=== PATIENT | female | born 1990 | race Caucasian/White ===

== ENCOUNTER 2018-12-21 23:52 | Inpatient (IN) ==
[2018-12-22] MEDS ORDERED: ONDANSETRON HCL/PF 2 MG/ML VIAL IV PRN ×3 (00:20→22:53)
[2018-12-22] MEDS ORDERED: DEXTROSE 5%-LACTATED RINGERS 1,000 ML IV PRN (00:20)
[2018-12-22] MEDS ORDERED: OXYTOCIN/DEXTROSE 5%-WATER 30 UNITS/500 ML BAG IV ONE (00:22)
[2018-12-22 01:26] LABS: Cocaine Ur Negative (NEGATIVE); Urine Barbiturate Negative (NEGATIVE); Urine Benzodiazepines Negative (NEGATIVE); Urine Opiates Negative (NEGATIVE); Urine PCP Negative (NEGATIVE); Urine THC Negative (NEGATIVE)
[2018-12-22] MEDS: RINGER'S SOLUTION,LACTATED 1,000 ML IV PRN ×2 (08:05→20:44)
[2018-12-22] MEDS ORDERED: NALOXONE HCL 1 MG/1 ML SYRG IV PRN (08:43)
[2018-12-22] MEDS ORDERED: BUPIVACAINE HCL/0.9 % NACL/PF 250 ML EP PRN (08:43)
[2018-12-22] MEDS ORDERED: BUPIVACAINE HCL/PF 30 ML VIAL EP SCH (08:45)
--- NOTE | 2018-12-22 08:46 | ANES ---
Anesthesia Pre Procedure Eval Vitals/Labs: Last Vital Signs Temp 37.2 C 12/22/18 01:45 Pulse 81 12/22/18 01:45 Resp 16 12/22/18 01:45 BP 126/77 12/22/18 01:45 Pulse Ox 98 12/22/18 01:45 HOME MEDICATIONS vitamin,calcium,kolbwvmu-epyt-aafcn acid tablet 1 tab PO DAILY 06/14/18 [Last Taken Unknown] magnesium 250 mg tablet 500 mg PO DAILY PRN tab 07/18/18 [Last Taken Unknown] Allergies/Adverse Reactions: Allergies Allergy/AdvReac Type Severity Reaction Status Date / Time amoxicillin AdvReac Severe Anaphylaxis Verified 12/22/18 00:30 - Planned Procedure Planned Procedure: Labor epidural Medication List Reviewed:: Yes Allergies Verified: Yes Medical History (Last Reviewed 12/22/18 @ 08:45 by Sudeep Silva CRNA) Acne Foot pain, left Migraine headache with aura History of wisdom tooth extraction Oligomenorrhea Onset Date: ~06/28/15 Other specified irregular menstruation Onset Date: ~10/08/15 Dysmenorrhea Onset Date: ~12/23/17 Menorrhagia with regular cycle Onset Date: ~12/23/17 Surgical History (Last Reviewed 12/22/18 @ 08:45 by Sudeep Silva CRNA) History of foot surgery Onset Date: ~01/02/15 Left Family History (Last Reviewed 12/22/18 @ 08:45 by Sudeep Silva CRNA) Aunt Cancer Ovarian CA Brother Diabetes Father Hypertension Mother Alive and well Grandfather Cancer - Anesthesia Assessment and Plan ASA Class: PS, II Anesthesia Type Plan: Epidural
--- NOTE | 2018-12-22 09:15 | ANES ---
Anesthesia Procedure Note Procedure Note: ANESTHESIA PROCEDURE NOTE Date of Procedure: 12/22/2018. Time of procedure: 854. Performed by: Sudeep Silva CRNA Boiler Operator: None. Preprocedure diagnosis: Active labor. Post procedure diagnosis: Same. Procedure: Insertion of labor epidural. Indications: The patient is a 28 -year-old female in active labor requesting labor epidural for pain management. Findings: See below. Details of the procedure: The patient was placed in a sitting position. DuraPrep as well as Betadine swabs X3 was applied to the patient's back. Patient was then draped in a sterile fashion. Lidocaine 1% was infiltrated to the skin and subcutaneous tissues at the level of the L3-4 interspace. The epidural space was identified using a 18-gauge Tuohy needle with yure-fs-fuaaqoazqw technique. CSF fluid was noted upin removal of stylette. the tuohy needle was withdrawn untill free flow of CSF stopped. Epidural catheter was inserted to a depth of 12 centimeters at skin. Negative test dose was elicited using 3 mL of 1.5% preservative-free lidocaine plus epinephrine 1 200,000. The epidural catheter was then taped and secured in place. A loading dose of 8 mL of 0.25% preservative-free bupivacaine was administered to the epidural catheter after negative aspiration for blood and CSF. EBL: Minimal. Fluids: N/A. Specimen: N/A. Post procedure condition: The patient tolerated the procedure well. No complications were noted. Thank you for this consultation. Sudeep Silva CRNA
--- NOTE | 2018-12-22 09:17 | ANES ---
Post Anesthesia Assessment - Vital Signs Vitals: Last Vital Signs Temp 36.8 C 12/22/18 09:16 Pulse 74 12/22/18 09:16 Resp 18 12/22/18 09:16 BP 144/82 H 12/22/18 09:16 Pulse Ox 97 12/22/18 09:16 Airway Patency: Normal - Mental Status Level Of Consciousness: Awake - N/V Assessment Nausea/Vomiting Presence: None Dehydration:: No
--- NOTE | 2018-12-22 13:08 | ANES ---
Anesthesia Procedure Note Procedure Note: ANESTHESIA PROCEDURE NOTE Date of Procedure: 12/22/2018. Time of procedure: 1255. Performed by: Sudeep Silva CRNA Physical Therapy Professor: None. Preprocedure diagnosis: Accidental removal of epidural. Post procedure diagnosis: Same. Procedure: Removal and Rensertion of labor epidural. Indications: The patient is a 28-year-old female in active whose epidural catheter has been partially removed. Findings: See below. Details of the procedure: The epidural catheter was found to be removed approximately 4 cm. The tape was removed and the epidural catheter was then removed intact. DuraPrep as well as Betadine swabs X3 was applied to the patient's back. Patient was then draped in a sterile fashion. Lidocaine 1% was infiltrated to the skin and subcutaneous tissues at the level of the L3-4 interspace. The epidural space was identified using a 18-gauge Tuohy needle with syat-uy-vseynbqsxs technique. Epidural catheter was inserted to a depth of 12 centimeters at skin. Negative test dose was elicited using 3 mL of 1.5% preservative-free lidocaine plus epinephrine 1 200,000. The epidural catheter was then taped and secured in place. EBL: Minimal. Fluids: N/A. Specimen: N/A. Post procedure condition: The patient tolerated the procedure well. No complications were noted. Thank you for this consultation. Sudeep Silva CRNA
--- NOTE | 2018-12-22 13:19 | HP ---
Chief Complaint - Chief Complaint Date of Service: 12/22/18 Time of Service: 13:12 Chief Complaint: elective induction of labor History of Present Illness: 28 yo at 39 5/7 wks presents for elective induction of labor. This has been uncomplicated. Rh positive Rubella nonimmune GBS negative Medical History (Last Reviewed 12/22/18 @ 13:15 by Isreal Kendrick DO) Acne Foot pain, left Migraine headache with aura History of wisdom tooth extraction Oligomenorrhea Onset Date: ~06/28/15 Other specified irregular menstruation Onset Date: ~10/08/15 Dysmenorrhea Onset Date: ~12/23/17 Menorrhagia with regular cycle Onset Date: ~12/23/17 Surgical History: Surgical History (Last Reviewed 12/22/18 @ 13:15 by Isreal Kendrick DO) History of foot surgery Onset Date: ~01/02/15 Left Family History: Family History (Last Reviewed 12/22/18 @ 13:15 by Isreal Kendrick DO) Aunt Cancer Ovarian CA Brother Diabetes Father Hypertension Mother Alive and well Grandfather Cancer Social History: Preferred Language Turkish Smoking Status Former smoker (Last Updated 12/20/18 @ 10:31 by Isreal Kendrick DO) No Social History Section defined Review Of Systems (GEN) - Review of Systems Generalized/Overall Review: Present: No Symptoms Reported EENTM: Present: No Symptoms Reported Respiratory: Present: No Symptoms Reported Cardiac: Present: No Symptoms Reported Abdominal: Present: No Symptoms Reported Genitourinary: Present: No Symptoms Reported Musculoskeletal: Present: No Symptoms Reported Neurological: Present: No Symptoms Reported Skin: Present: No Symptoms Reported Endocrine: Present: No Symptoms Reported Allergies/Adverse Reactions: Allergies Allergy/AdvReac Type Severity Reaction Status Date / Time amoxicillin AdvReac Severe Anaphylaxis Verified 12/22/18 00:30 Home Medications: HOME MEDICATIONS vitamin,calcium,sbhspdgb-denu-tiido acid tablet 1 tab PO DAILY 06/14/18 [Last Taken Unknown] magnesium 250 mg tablet 500 mg PO DAILY PRN tab 07/18/18 [Last Taken Unknown] Exam - Exam Vital Signs: Vital Signs - Last Taken Temp 36.8 C 12/22/18 09:16 Pulse 74 12/22/18 09:16 Resp 18 12/22/18 09:16 BP 144/82 H 12/22/18 09:16 Pulse Ox 97 12/22/18 09:16 Constitutional: Present: Alert, Oriented x3, Cooperative, No distress ENT Exam: Present: hearing grossly normal Breasts: Present: Exam deferred Respiratory: Present: lungs clear, no respiratory distress Cardiovascular/Chest: Present: regular rate, rhythm Abdomen: Present: soft, nontender, other - gravid /Rectal: Present: Other - cervix 3/60/-2 Extremity: Present: non-tender, no pedal edema, no calf tenderness Skin Exam: Present: normal color, warm/dry, no cyanosis Neurologic: Present: alert, normal mood/affect, oriented x 3 Appearance: Present: appropriate appearance, appropriate insight Eye contact: Present: cooperative, good eye contact, normal speech Thoughts: Present: normal thought pattern Diagnostic Studies: Laboratory Results Urine Opiates Screen Negative (NEGATIVE) 12/22/18 00:24 Barbiturate Screen Negative (NEGATIVE) 12/22/18 00:24 Ur Phencyclidine Scrn Negative (NEGATIVE) 12/22/18 00:24 Urine Amphetamine Negative (NEGATIVE) 12/22/18 00:24 U Benzodiazepines Scrn Negative (NEGATIVE) 12/22/18 00:24 Urine Cocaine Screen Negative (NEGATIVE) 12/22/18 00:24 Urine Marijuana (THC) Negative (NEGATIVE) 12/22/18 00:24 Assessment/Plan - Procedures Results: Admit for pitocin induction of labor. Epidural PRN. - Assessment/Plan (1) Elective induction of labor planned Problem: Acute
--- NOTE | 2018-12-22 17:00 | PN ---
Progess Note - Interim Date: 12/22/18 Time: 16:51 Narrative: 12/22/18 16:51 Patient uncomfortable despite epidural Vital signs stable. Pitocin at 4 mu/min. FHT: 135 baseline, good ptie-uy-eprj variability, early decelerations, occasional variable with late component decelerations Contractions q 2-3 min, with coupling Cervix: Complete/0 station, OP presentation Impression: Intrauterine at 39-5/7 weeks. Complete since 1630 Plan: Trial of position changes then begin pushing again. We'll decrease Pitocin to allow baby to recuperate in between contractions.
--- NOTE | 2018-12-22 20:31 | PN ---
Progess Note - Interim Date: 12/22/18 Time: 20:25 Narrative: 12/22/18 20:25 Patient has been pushing for over 3 hours with little change in descent. R/b/a to C/S vs operative vaginal delivery vs continued pushing discussed with patient and spouse. She desires to continue pushing as long as tracing remains reassuring. FHT reassuring with baseline 145. Ctx q 2-3 min with pitocin at 2 mu/min Cvx - complete/+2 with large caput Will reassess at 2100.
[2018-12-22] MEDS ORDERED: OXYTOCIN 20 UNITS in RINGER'S SOLUTION,LACTATED 1,000 ML IV ONE (20:38)
[2018-12-22] MEDS ORDERED: GENTAMICIN SULFATE IV ONE ×2 (20:50)
[2018-12-22] MEDS ORDERED: DEXTROSE 5% IV ONE ×2 (20:50)
[2018-12-22] MEDS ORDERED: WATER IV ONE ×2 (20:50)
--- NOTE | 2018-12-22 20:54 | PN ---
Progess Note - Interim Date: 12/22/18 Time: 20:53 Narrative: 12/22/18 20:53 Patient has decided to stop pushing and proceed with c/s. R/b/a discussed with patient and spouse. All questions answered. Will proceed with primary LTCS for arrest of descent.
[2018-12-22] MEDS ORDERED: AZITHROMYCIN 500 MG in DEXTROSE 5 % IN WATER 250 ML IV ONE ×2 (21:15)
[2018-12-22] MEDS ORDERED: CLINDAMYCIN PHOSPHATE 900 MG in DEXTROSE 5 % IN WATER 100 ML IV SCH ×2 (22:00)
[2018-12-22] MEDS ORDERED: RINGER'S SOLUTION,LACTATED 1,000 ML IV PRN (22:31)
[2018-12-22] MEDS ORDERED: BISACODYL 10 MG SUPP.RECT RC PRN (22:53)
[2018-12-22] MEDS ORDERED: SIMETHICONE 80 MG TAB.CHEW PO PRN (22:53)
[2018-12-22] MEDS ORDERED: GLYCERIN/WITCH HAZEL LEAF 40 APPL BOX TP PRN (22:53)
[2018-12-22] MEDS ORDERED: SENNOSIDES 8.6 MG TABLET PO PRN (22:53)
[2018-12-22] MEDS ORDERED: BENZOCAINE/MENTHOL 81 SPRAY CAN TP PRN (22:53)
[2018-12-22] MEDS ORDERED: oxyCODONE HCL/ACETAMINOPHEN 1 TAB TABLET PO PRN (22:53)
--- NOTE | 2018-12-22 22:54 | ANES ---
Post Anesthesia Discharge - Transfer of Care Transfer of Care handoff given to nurse: Yes - Discharge from PACU Discharge from PACU when meets criteria: Yes
--- NOTE | 2018-12-22 22:54 | ANES ---
Anesthesia Pre Procedure Eval Vitals/Labs: Last Vital Signs Temp 36.8 C 12/22/18 09:16 Pulse 74 12/22/18 09:16 Resp 18 12/22/18 09:16 BP 144/82 H 12/22/18 09:16 Pulse Ox 97 12/22/18 09:16 HOME MEDICATIONS vitamin,calcium,nwepjpwf-ufgp-sthhu acid tablet 1 tab PO DAILY 06/14/18 [Last Taken Unknown] magnesium 250 mg tablet 500 mg PO DAILY PRN tab 07/18/18 [Last Taken Unknown] Allergies/Adverse Reactions: Allergies Allergy/AdvReac Type Severity Reaction Status Date / Time amoxicillin AdvReac Severe Anaphylaxis Verified 12/22/18 00:30 - Planned Procedure Planned Procedure: Medication List Reviewed:: Yes Allergies Verified: Yes Medical History (Last Reviewed 12/22/18 @ 22:53 by Kobi Christian CRNA) Acne Foot pain, left Migraine headache with aura History of wisdom tooth extraction Oligomenorrhea Onset Date: ~06/28/15 Other specified irregular menstruation Onset Date: ~10/08/15 Dysmenorrhea Onset Date: ~12/23/17 Menorrhagia with regular cycle Onset Date: ~12/23/17 Surgical History (Last Reviewed 12/22/18 @ 22:53 by Kobi Christian CRNA) History of foot surgery Onset Date: ~01/02/15 Left Family History (Last Reviewed 12/22/18 @ 22:53 by Kobi Christian CRNA) Aunt Cancer Ovarian CA Brother Diabetes Father Hypertension Mother Alive and well Grandfather Cancer - Family Anesthesia History Family History:: no untoward family reactions to anesthesia - Airway/Neck/Teeth Denture Type: None Neck Exam: full range of motion Mallampatti Score: 2 Thyromental (T-M) distance: > 6 cm Mandibulo Hyoid distance: > 3 cm - Respiratory Respiratory Physical: lungs clear Smoking Status: Former smoker Sleep Apnea currently treated: No Sleep Apnea by current assessment: No - Cardiovascular Tolerate Activity: Good Heart Sounds: S1 & S2, Regular - Anesthesia Assessment and Plan ASA Class: PS, II, E Anesthesia Type Plan: Epidural Planned difficult intubation/equipment available: No
--- NOTE | 2018-12-22 23:00 | ANES ---
Post Anesthesia Assessment - Vital Signs Vitals: Last Vital Signs Temp 37.4 C 12/22/18 22:50 Pulse 104 H 12/22/18 22:55 Resp 18 12/22/18 22:55 BP 129/56 12/22/18 22:55 Pulse Ox 97 12/22/18 22:55 Airway Patency: Normal - Mental Status Level Of Consciousness: Awake - Pain Level Pain Score: 0 - N/V Assessment Nausea/Vomiting Presence: None Dehydration:: No
--- NOTE | 2018-12-22 23:02 | OR ---
Operative Report - Dictated Report Narrative: Indication: 28-year-old 1 para 0 admitted for elective induction of labor secondary to trending large for gestational age progressed to complete +2 station but no further descent despite 3+ hours of pushing Status: Planned Pre Operative Diagnosis: 39-5/7 week intrauterine , arrest of descent Post Operative Diagnosis: Same. Procedure Preformed: Primary Low Transverse Section Surgeon: Tomy Kendrick DO Planer Setter: OR Staff Anesthesia: Epidural Estimated Blood Loss: 400 mL Urine Output: 400 mL Fluids Given: 1800 mL Drains: Saldivar to gravity Surgical Complications: None Specimens: Placenta to freezer Findings: Female born at 2157 on 12/22/2017 in cephalic presentation with Apgars 9 and 9, weighing 3538 g. Normal uterus, tubes, ovaries. Technique: The patient was taken to the operating room and placed in dorsal supine position with a left lateral tilt. After adequate epidural anesthesia, saldivar catheter insertion,SCDs placed, and 900 mg of clindamycin started intravenously, the abdominal cavity was entered via a modified Juma-Serrato incision. Two rolled laps were placed in the pericolic gutters on either side of the uterus. A transverse incision was made in the lower uterine segment and extended laterally and upwardly with digital traction. Clear fluid was noted upon amniotomy. The infant's head was deep in the pelvis and required great effort to break the seal and bring the head out of the pelvis. Once this was accomplished, the rest of the infant was delivered easily. The cord was clamped and cut and vigorous crying infant was handed off to awaiting manager sterile. The placenta was allowed to deliver spontaneously. The uterus was cleared of clot and debris. Uterine incision was closed with 0 Vicryl using a running stitch. A second imbricating layer was placed. Excellent hemostasis was noted. Rolled laps were removed from the abdominal cavitiy. The peritoneum was closed with a running 3-0 Monocryl. The same suture was used to approximate the rectus and pyramidalis muscles. The fascia was closed with a running 0 Vicryl. The subcutaneous layer was closed with a running 3-0 Monocryl. The same suture was used to approximate the subdermal layer. The skin was closed with a running 4-0 Monocryl and Dermabond. Sponge, lap, needle, and instrument count were correct x 2. Disposition: The patient was transferred to post anesthesia care unit in good condition History for MU Definition: * The number of deliveries resulting in a live the patient experienced prior to current hospitalization * The previous delivery of live twins or any live multiple gestation is considered one live event. *If primagravida or nulliparous is documented select zero for the number of previous live births. Live Events: 0
[2018-12-23] MEDS: IBUPROFEN 800 MG TABLET PO PRN ×4 (00:47→21:55)
[2018-12-23] MEDS: oxyCODONE HCL/ACETAMINOPHEN 1 TAB TABLET PO PRN ×6 (00:48→21:55)
[2018-12-23] MEDS: ENOXAPARIN SODIUM 40 MG/0.4 ML SYRG SC SCH (07:32)
[2018-12-23] MEDS: DOCUSATE SODIUM 100 MG CAPSULE PO SCH ×2 (08:36→20:45)
--- NOTE | 2018-12-23 10:03 | PN ---
Subjective - Date and Time Seen Date: 12/23/18 Time: 10:02 Objective - Vitals Vitals: Last Vital Signs Temp 36.5 C 12/23/18 07:19 Pulse 90 12/23/18 07:19 Resp 16 12/23/18 07:19 BP 131/79 12/23/18 07:19 Pulse Ox 100 12/23/18 07:19 Patient denies complaints. Tolerating regular diet. Ambulating without difficulty. Pain well controlled. Lochia wnl. Abdomen - soft, appropriately tender Incision - clean, dry, intact Uterus - firm, at umbilicus -1 No calf tenderness Impression: Post op day #1 s/p primary section. Plan: Continue routine post-operative/ care Cauti Physician Documentation - Urinary Catheter Management Urethral (Lorenzo) Date of Insertion: 12/22/18 Time of Insertion: 09:55 Date of Removal: 12/22/18 Time of Removal: 12:29 Assessment/Plan - Problems/Diagnosis (1) Elective induction of labor planned Problem: Acute
[2018-12-24] MEDS: oxyCODONE HCL/ACETAMINOPHEN 1 TAB TABLET PO PRN ×3 (01:02→08:55)
[2018-12-24] MEDS: IBUPROFEN 800 MG TABLET PO PRN ×3 (03:58→18:44)
[2018-12-24] MEDS: ENOXAPARIN SODIUM 40 MG/0.4 ML SYRG SC SCH (06:30)
--- NOTE | 2018-12-24 07:37 | PN ---
Subjective - Date and Time Seen Date: 12/24/18 Time: 07:36 Objective - Vitals Vitals: Last Vital Signs Temp 37.0 C 12/24/18 00:01 Pulse 105 H 12/24/18 00:01 Resp 18 12/24/18 00:01 BP 124/69 12/24/18 00:01 Pulse Ox 96 12/24/18 00:01 Patient denies complaints. Ambulating well. Tolerating regular diet. Pain well controlled. Lochia wnl. Abdomen - soft, appropriately tender Incision - clean, dry, intact Uterus - firm, at umbilicus -2 No calf tenderness Impression: Post op day #2 s/p primary section. Plan: Continue routine post-operative/ care Cauti Physician Documentation - Urinary Catheter Management Urethral (Lorenzo) Date of Insertion: 12/22/18 Time of Insertion: 09:55 Date of Removal: 12/23/18 Time of Removal: 11:15 Assessment/Plan - Problems/Diagnosis (1) Elective induction of labor planned Problem: Acute
[2018-12-24] MEDS: DOCUSATE SODIUM 100 MG CAPSULE PO SCH ×2 (08:55→21:16)
[2018-12-25] MEDS: IBUPROFEN 800 MG TABLET PO PRN ×2 (01:25→07:48)
[2018-12-25] MEDS: ENOXAPARIN SODIUM 40 MG/0.4 ML SYRG SC SCH (07:20)
[2018-12-25 07:43] VITALS: BP 124/72
[2018-12-25] MEDS: DOCUSATE SODIUM 100 MG CAPSULE PO SCH (07:48)
--- NOTE | 2018-12-25 09:50 | PN ---
Subjective - Date and Time Seen Date: 12/25/18 Time: 09:49 Objective - Vitals Vitals: Last Vital Signs Temp 36.6 C 12/25/18 07:05 Pulse 98 12/25/18 07:05 Resp 18 12/25/18 07:05 BP 124/72 12/25/18 07:42 Pulse Ox 96 12/25/18 07:05 Patient denies complaints. Ambulating without difficulty. Tolerating regular diet. Pain well controlled. Breast feeding well. Lochia wnl. Abdomen - soft, appropriately tender Incision - clean, dry, intact Uterus - firm, at umbilicus -3 No calf tenderness Impression: Post op day #3 s/p primary section. Plan: Routine discharge instructions Cauti Physician Documentation - Urinary Catheter Management Urethral (Lorenzo) Date of Insertion: 12/22/18 Time of Insertion: 09:55 Date of Removal: 12/23/18 Time of Removal: 11:15 Assessment/Plan - Problems/Diagnosis (1) Elective induction of labor planned Problem: Acute
== END 2018-12-25 13:00 | disposition home or self-care (01) | DRG 788 ==
LOC: OB 23:52
PROVIDERS: ADMIT Obstetrics & Gynecology; ATTEND Obstetrics & Gynecology
CPT/HCPCS: 59025; 80307